=== PATIENT | male | born 1950 | race Caucasian/White ===

== ENCOUNTER 2016-10-24 11:55 | Emergency (ER) | payer MEDICARE, BC ==
[~2016-10-24] VITALS: Ht 175.3 cm; Wt 74.3 kg
[~2016-10-24 11:55] MED LIST: INSPI INH; MEDR4PAK3 PO; VENTAER INH; ZITH250T PO
[2016-10-24 12:03] VITALS: BP 121/70; PULSE 73; RESP 16; TEMP 97.6; O2SAT 99
[2016-10-24] MEDS ORDERED: ROSU5 PO (12:17)
--- NOTE | 2016-10-24 13:30 | PD ---
HPI Chief Complaint: Laceration/Skin Injury Time Seen by Provider: 13:16 Travel History International Travel<30 days: No Contact w/Intl Traveler<30days: No Traveled to known affect area: No History of Present Illness HPI THIS patient was using a table saw and injured his left thumb. Duration 2 hours. Symptoms are severe. He cut into the left thumb and came in with it wrapped up. He has pain in the thumb. Denies numbness. No alleviating factors. He takes no blood thinners. PFSH Past Medical History Hx Anticoagulant Therapy: No Heart Rhythm Problems: No Cardiac Catheterization: No Cardiovascular Problems: Yes (CHOL) Diabetes: No Diminished Hearing: No Hypertension: No Myocardial Infarction: No Tetanus Vaccination: > 5 Years Past Surgical History Coronary Artery Bypass Graft: No Social History Alcohol Use: Yes ([employer]) Tobacco Use: Yes (1 PACK DAILY) Substance Use: No Allergies-Medications (Allergen,Severity, Reaction): Coded Allergies: No Known Allergies (Verified , 10/24/16) Reported Meds & Prescriptions Reported Meds & Active Scripts Active Reported Crestor (Rosuvastatin Calcium) 5 Mg Tab 5 Mg PO DAILY Review of Systems General / Constitutional: No: Fever Eyes: No: Visual changes HENT: No: Headaches Cardiovascular: No: Chest Pain or Discomfort Respiratory: No: Shortness of Breath Gastrointestinal: No: Abdominal Pain Genitourinary: No: Dysuria Musculoskeletal: Positive: Pain Skin: No Rash Neurologic: No: Weakness Psychiatric: No: Depression Endocrine: No: Polydipsia Hematologic/Lymphatic: No: Easy Bruising Physical Exam Narrative GENERAL: Well-nourished, well-developed patient in no apparent distress. SKIN: Focused skin assessment reveals no rash and nodules. Skin is Warm and dry. HEAD: Atraumatic. Normocephalic. EYES: Pupils equal and round. No scleral icterus. No injection or drainage. ENT: No nasal bleeding or discharge. Mucous membranes pink and moist. NECK: Trachea midline. No JVD. CARDIOVASCULAR: Regular rate and rhythm. No murmur appreciated. RESPIRATORY: No accessory muscle use. Clear to auscultation. Breath sounds equal bilaterally. GASTROINTESTINAL: Abdomen soft, non-tender, nondistended. Hepatic and splenic margins not palpable. MUSCULOSKELETAL: There is deformity at the left thumb. There is laceration shearing through the digit. It starts at about the base of the nail fold and ankles toward the tip all the way through. There is a amputation of the tip. There is a lot of tissue loss and the bone is exposed. There is some venous bleeding. No arterial spurting. He has sensation. No clubbing. No cyanosis. No edema. NEUROLOGICAL: Awake and alert. No obvious cranial nerve deficits. Motor grossly within normal limits. Normal speech. PSYCHIATRIC: Appropriate mood and affect; insight and judgment normal. Data Data Last Documented VS Vital Signs Date Time Temp Pulse Resp B/P Pulse Ox O2 Delivery O2 Flow Rate FiO2 10/24/16 13:32 76 16 119/74 98 Room Air 10/24/16 12:03 97.6 Orders Finger ([id number]) (10/24/16 ) Iv Access Insert/Monitor (10/24/16 13:16) Complete Blood Count With Diff (10/24/16 13:16) Prothrombin Time / Inr (Pt) (10/24/16 13:16) Act Partial Throm Time (Ptt) (10/24/16 13:16) Basic Metabolic Panel (Bmp) (10/24/16 13:16) Tetanus/Diphtheria Tox Adult (Tetanus/Di (10/24/16 13:45) Bupivacaine Pf 0.5% Inj (Marcaine Pf 0.5 (10/24/16 14:00) Labs Laboratory Tests Test 10/24/16 13:25 White Blood Count 17.7 TH/MM3 Red Blood Count 4.75 MIL/MM3 Hemoglobin 14.1 GM/DL Hematocrit 42.2 % Mean Corpuscular Volume 88.9 FL Mean Corpuscular Hemoglobin 29.7 PG Mean Corpuscular Hemoglobin 33.4 % Concent Red Cell Distribution Width 12.6 % Platelet Count 266 TH/MM3 Mean Platelet Volume 7.4 FL Neutrophils (%) (Auto) 86.7 % Lymphocytes (%) (Auto) 7.8 % Monocytes (%) (Auto) 4.2 % Eosinophils (%) (Auto) 1.1 % Basophils (%) (Auto) 0.2 % Neutrophils # (Auto) 15.4 TH/MM3 Lymphocytes # (Auto) 1.4 TH/MM3 Monocytes # (Auto) 0.7 TH/MM3 Eosinophils # (Auto) 0.2 TH/MM3 Basophils # (Auto) 0.0 TH/MM3 CBC Comment DIFF FINAL Differential Comment Prothrombin Time 10.5 SEC Prothromb Time International 1.0 RATIO Ratio Activated Partial 24.1 SEC Thromboplast Time Sodium Level 140 MEQ/L Potassium Level 4.3 MEQ/L Chloride Level 106 MEQ/L Carbon Dioxide Level 26.8 MEQ/L Anion Gap 7 MEQ/L Blood Urea Nitrogen 16 MG/DL Creatinine 0.84 MG/DL Estimat Glomerular Filtration 91 ML/MIN Rate Random Glucose 96 MG/DL Calcium Level 8.7 MG/DL MDM Medical Decision Making Medical Screen Exam Complete: Yes Emergency Medical Condition: Yes Medical Record Reviewed: Yes Differential Diagnosis Fingertip amputation, open fracture, soft tissue laceration Narrative Course I have reviewed the patient's electronic medical record. IV placed CBC shows leukocytosis otherwise normal Metabolic profile is normal Coagulation studies are normal I reviewed his left thumb x-rays which show amputated distal tuft and soft tissue damage This patient has obvious open fracture with distal thumb amputation. I've discussed the case with hand surgeon labor economist Dr. Crouch. He requests that I take a picture of the injury and text it to him which I have done after the patient has agreed. Tetanus booster given Dr. Crouch is going to come into the emergency room and repair this. I had planned on giving him a Marcaine digital block but he informs me he is having absolutely no pain and so I am holding off on this since he may not get evaluated by hand surgeon for several hours. If he does develop pain and then I will do it Diagnosis Primary Impression: Open fracture of left thumb Qualified Code: S62.525B - Open nondisplaced fracture of distal phalanx of left thumb, initial encounter Additional Impression: Traumatic amputation of fingertip Qualified Code: S68.129A - Traumatic amputation of fingertip, initial encounter Additional Instructions: Follow-up with hand surgeon as instructed Med/Other Pt SpecificInfo: Prescription(s) given Disposition: DISCHARGE HOME Condition: Stable Junior Champagne MD Oct 24, 2016 13:30
[2016-10-24 13:32] VITALS: BP 119/74; PULSE 76; RESP 16; O2SAT 98
[2016-10-24] MEDS ORDERED: TETANUS/DIPHTHERIA TOXOID ADULT 0.5 ML VIAL IM ONE (13:45)
[2016-10-24 13:46] LABS: AUTOMATED NEUTROPHIL # 15.4 TH/MM3 (1.8-7.7); BASOPHIL % 0.2 % (0.0-2.0); EOSINOPHIL # 0.2 TH/MM3 (0-0.4); EOSINOPHIL % 1.1 % (0.0-4.0); HEMATOCRIT 42.2 % (39.0-51.0); LYMPH % 7.8 % (9.0-44.0); LYMPHOCYTE # 1.4 TH/MM3 (1.0-4.8); MEAN CELL VOLUME 88.9 FL (80.0-100.0); MEAN CORPUSCULAR HEMOGLOBIN 29.7 PG (27.0-34.0); MEAN CORPUSCULAR HGB CONC 33.4 % (32.0-36.0); MONO % 4.2 % (0.0-8.0); NEUT % 86.7 % (16.0-70.0); PLATELET COUNT 266 TH/MM3 (150-450); POTASSIUM 4.3 MEQ/L (3.5-5.1); RED BLOOD COUNT 4.75 MIL/MM3 (4.50-5.90); RED CELL DISTRIBUTION WIDTH 12.6 % (11.6-17.2); WHITE BLOOD COUNT 17.7 TH/MM3 (4.0-11.0)
[2016-10-24 13:49] LABS: BICARBONATE 26.8 MEQ/L (21.0-32.0)
--- NOTE | 2016-10-24 13:49 | RADRPT ---
EXAM DATE/TIME: 10/24/2016 13:30 [facility] COMPARISON: No previous studies available for comparison. INDICATIONS : Laceration to left thumb from a table saw. MEDICAL HISTORY : None. SURGICAL HISTORY : None. ENCOUNTER: Initial ACUITY: 1 day PAIN SCORE: 3/10 LOCATION: Left thumb. FINDINGS: The first distal phalangeal tuft is truncated. CONCLUSION: Truncation of the first distal phalangeal tuft. Rajni Bella MD on October 24, 2016 at 13:46 Board Certified Radiologist. This report was verified electronically.
[2016-10-24 13:50] LABS: APTT (PATIENT) 24.1 SEC (24.3-30.1); HEMO FLAGS DIFF FINAL; PROTHROMBIN TIME - PATIENT 10.5 SEC (9.8-11.6)
[2016-10-24] MEDS ORDERED: BUPIVACAINE HCL PF 0.5% 10 ML VIAL INFIL ONE (14:00)
[2016-10-24 15:57] VITALS: BP 118/68; PULSE 80; RESP 16; O2SAT 100
[2016-10-24 17:39] VITALS: BP 123/79; PULSE 76; RESP 16; O2SAT 100
--- NOTE | 2016-10-25 11:24 | MB ---
cc: RAMESH BELLO M.D. Corrected Copy: 10/25/16 DATE OF CONSULTATION: 10/24/[address] Junior Champagne. REASON FOR CONSULTATION Injury to the left thumb. HISTORY OF PRESENT ILLNESS The patient is a 66-year-old male who was working with a table saw. The laceration was on the dorsal aspect of the thumb. There was bone missing. Consultation is requested regarding evaluation and treatment of the finger. PAST MEDICAL HISTORY The patient is otherwise well. Denies history of hypercholesterolemia. SOCIAL HISTORY Consumes alcohol on a social basis. Smokes a pack of cigarettes a day. ALLERGIES None known. MEDICATIONS Crestor. REVIEW OF SYSTEMS Negative in detail except as related to the injury. PHYSICAL EXAMINATION GENERAL: On examination the patient is lying comfortably on the stretcher. HEENT: His extraocular muscles are intact. His pupils are equal round and reactive to light. His mouth is clear. NECK: His neck is supple without masses. LUNGS: Clear. HEART: Regular rate and rhythm. EXTREMITIES: Examination of upper extremities reveals an open wound to the dorsal aspect of the distal phalanx of his left thumb and it involves the distal 75% of the nail bed and plate. The majority of the bone beneath this injury is gone but the soft tissue palmar to the bone appears to be intact with a good circulation. The x-rays are reviewed. IMPRESSION The patient has an open wound to his left thumb with bone loss and soft tissue loss. PLAN The patient is advised that we will remove some of the bone fragments and use the tissue present to close the wound. He understands and accepts the risks and complications of the procedure. MD GREG Mancuso/BHAVNA /11:18 AM /2:43 PM [facility]
--- NOTE | 2016-11-08 10:49 | MP ---
cc: RAMESH BELLO M.D. DATE OF SURGERY: 10/24/2016 PREOPERATIVE DIAGNOSIS Partial amputation, tip of the left thumb. POSTOPERATIVE DIAGNOSIS Partial amputation, tip of the left thumb. PROCEDURE 1. Excisional debridement of soft tissue and bone, tip of left thumb. 2. Reconstruction of tip with advancement flap. ANESTHESIA Local. SURGEON Ramesh Bello MD INDICATIONS A 66-year-old male with a history of injury to his thumb with a table saw earlier in the day. FINDINGS The dorsal aspect of the distal phalanx was missing along with the nail bed and nail plate. At the completion of the procedure a portion of the distal phalanx had been removed. The wound was excisionally debrided and the defect reconstructed with an advancement flap from the palmar tissue. Operative time was approximately 45 minutes. DETAILS OF PROCEDURE The patient was seen in the emergency room where the operation was performed. He was in a supine position. His left hand was prepped with Betadine and draped in the usual sterile fashion. Bupivacaine 0.5% plain was used to anesthetize his left thumb. Once the anesthetic had taken effect, a portion of a glove with a clamp was used to make a tourniquet. The thumb was then copiously irrigated with saline. Under loupe magnification the bone fragments were removed with a rongeur and smoothed. The adjacent tissue was debrided sharply. The palmar tissue was then advanced dorsally and the flap was shaped to the defect and sewn in place with 5-0 nylon suture material. Once the wound was closed the tourniquet was released after 35 minutes of tourniquet time. Pressure was applied. After several minutes there was no evidence of any oozing. A dressing was applied using povidone-iodine ointment, Adaptic, Telfa, 4x4s and Guido. The patient was then discharged in satisfactory condition back to the care of the ER staff having tolerated the procedure well. Postoperative instructions include keeping the arm elevated, keeping the area clean and dry and returning in several days for follow-up. MD GREG Mancuso/BONILLA /1:17 PM /10:34 AM
== END 2016-10-24 18:51 | disposition home or self-care (01) ==
LOC: PHED 11:55
DX: S68.022A Partial traumatic metacarpophalangeal amputation of left thumb, initial encounter (principal); F17.210 Nicotine dependence, cigarettes, uncomplicated; W31.2XXA Contact with powered woodworking and forming machines, initial encounter; Z23 Encounter for immunization
CPT/HCPCS: 14040; 73140; 80048; 85025; 85610; 85730; 90471; 90714